=== PATIENT | female | born 1980 | race Caucasian/White ===

== ENCOUNTER 2018-10-08 08:21 | Emergency (ER) | payer BC ==
[~2018-10-08] VITALS: Ht 170.2 cm; Wt 73.0 kg
[2018-10-08 08:22] VITALS: Ht 170.2 cm; Wt 73.0 kg
[2018-10-08 09:12] LABS: BASOPHIL % 0.1 % (0-2); PLATELET COUNT 263 x10^3mcL (130-400); RED CELL DISTRIBUTION WIDTH 14.1 % (11.5-14.5)
[2018-10-08 09:26] LABS: CALCIUM 8.6 mg/dL (8.5-10.1); CARBON DIOXIDE 26.9 mmol/L (21-32); CHLORIDE SERUM 103 mmol/L (98-107); CREATININE SERUM 0.7 mg/dL (0.6-1.0); GFR1 > 60 mL/min; GLUCOSE SERUM 100 mg/dL (74-106); POTASSIUM SERUM 3.8 mmol/L (3.5-5.1); SODIUM SERUM 138 mmol/L (136-145)
[2018-10-08 09:31] LABS: ALBUMIN 3.7 g/dL (3.4-5.0); ALKALINE PHOSPHATASE 85 U/L (46-116); ALT/SGPT 55 U/L (14-59); AST/SGOT 35 U/L (15-37); BILIRUBIN TOTAL 0.26 mg/dL (0.20-1.00); LIPASE 100 IU/L (73-393); TOTAL PROTEIN, SERUM 7.7 g/dL (6.4-8.2)
[2018-10-08 11:45] VITALS: BP 102/59
== END 2018-10-08 11:45 | disposition home or self-care (01) ==
LOC: ED 08:21
PROVIDERS: Emergency Medicine
DX: R10.11 Right upper quadrant pain (principal); R11.2 Nausea with vomiting, unspecified; R50.9 Fever, unspecified
CPT/HCPCS: J1885; J2405; J7030; Q0092